=== PATIENT | female | born 1965 | race Caucasian/White ===

== ENCOUNTER 2016-06-28 15:49 | Emergency (ER) | payer SELFPAY ==
--- NOTE | 2016-06-28 16:15 | ER Document Report ---
ED Medical Screen (RME) - General Stated Complaint: BACK PAIN Time seen by provider: 16:12 Mode of Arrival: Wheelchair Information source: Patient Notes: 51-year-old female with history of degenerative arthritis, intermittent bouts of low back pain, moved furniture in her room on Thursday.She developed back pain on . It hurts to sit or walk. Symptoms similar was due to UTI several months ago. No fever. Today she started having some tingling and numbness below both of her knees down to her feet bilaterally. I have greeted and performed a rapid initial assessment of this patient. A comprehensive ED assessment, evaluation of the patient, analysis of test results , and completion of the medical decision making process will be contacted by additional ED providers. TRAVEL OUTSIDE OF THE [place] IN LAST 30 DAYS: No - Related Data Allergies/Adverse Reactions: codeine [Codeine] Allergy (Verified 06/28/16 16:14) Vomiting Past Medical History Past Surgical History: Reports: Hx Section - x2, Hx Cholecystectomy, Hx Hysterectomy, Hx Tonsillectomy - Immunizations Hx Diphtheria, Pertussis, Tetanus Vaccination: Yes - unknown Physical Exam - Vital signs Vitals: Temp Pulse Resp BP Pulse Ox 98.1 F 72 20 124/57 L 98 06/28/16 15:59 06/28/16 15:59 06/28/16 15:59 06/28/16 15:59 06/28/16 15:59 Course - Vital Signs Vital signs: Temp Pulse Resp BP Pulse Ox 98.1 F 72 20 124/57 L 98 06/28/16 15:59 06/28/16 15:59 06/28/16 15:59 06/28/16 15:59 06/28/16 15:59
[2016-06-28 16:51] LABS: APPEARANCE,URINE CLEAR; BILIRUBIN,URINE NEGATIVE (NEGATIVE); GLUCOSE, URINE NEGATIVE (NEGATIVE); KETONES,URINE NEGATIVE (NEGATIVE); LEUKOCYTE ESTERASE,URINE NEGATIVE (NEGATIVE); NITRITE,URINE NEGATIVE (NEGATIVE); PROTEIN,URINE NEGATIVE (NEGATIVE); URINE SPECIFIC GRAVITY 1.008; UROBILINOGEN,URINE NEGATIVE mg/dL (<2.0)
[2016-06-28] MEDS ORDERED: MELOXICAM 15 MG TABLET PO ONE (17:34)
--- NOTE | 2016-06-28 17:34 | ER Document Report ---
HPI - HPI Patient complains to provider of: back pain Pain Level: 5 Context: Patient is a 51-year-old female with past medical history significant for degenerative arthritis. Patient states that on Thursday she is moving some furniture around her home and had back pain ever since then. Patient states she is not able to take a lot of medications to a sensitive stomach she's been taking Aleve which is been helping. Otherwise she admits to intermittent sciatica bilaterally but able to bear weight and walk. Denies any urinary/ stool incontinence, saddle anesthesia. Has medical history significant for degenerative arthritis, COPD, depression Past surgical history significant for total hysterectomy, tonsils and adenoids, cholecystectomy Social history significant for [id number] and social marijuana use Allergies to codeine PCP is [facility] - REPRODUCTIVE Reproductive: DENIES: : - DERM Skin Color: Normal Past Medical History - General Information source: Patient - Social History Smoking Status: Current Every Day Smoker Chew tobacco use (# tins/day): No Frequency of alcohol use: None Drug Abuse: None Family History: Reviewed & Not Pertinent Patient has suicidal ideation: No Patient has homicidal ideation: No Renal/ Medical History: Denies: Hx Peritoneal Dialysis Past Surgical History: Reports: Hx Section - x2, Hx Cholecystectomy, Hx Hysterectomy, Hx Tonsillectomy - Immunizations Hx Diphtheria, Pertussis, Tetanus Vaccination: Yes - unknown Vertical Provider Document - CONSTITUTIONAL Exam Limitations: No Limitations General Appearance: WD/WN, No Apparent Distress - INFECTION CONTROL TRAVEL OUTSIDE OF THE [place] IN LAST 30 DAYS: No - HEENT HEENT: Atraumatic, Normocephalic - RESPIRATORY O2 Sat by Pulse Oximetry: 98 - CARDIOVASCULAR Pulses: Normal: Radial, Dorsalis pedis Notes: Capillary refill less than 2 seconds in bilateral upper and lower extremity digits. - BACK Back: Normal Inspection. negative: CVA Tenderness-Right, CVA Tenderness-Left Notes: Tenderness to palpation of the paraspinous lumbar muscles. - MUSCULOSKELETAL/EXTREMETIES Musculoskeletal/Extremeties: MAEW, FROM, Non-Tender, No Edema. negative: Eccymosis - NEURO Level of Consciousness: Awake, Alert, Appropriate Motor/Sensory: No Motor Deficit, No Sensory Deficit - DERM Integumentary: Warm, Dry, No Rash Course - Re-evaluation Re-evalutation: 06/28/16 17:31 Patient is a 51-year-old female with known history of degenerative arthritis which she states causes her back pain when she seems to overdo it in physical activity which she did this week. Discharge patient home with prescription for Mobic and [facility]. - Vital Signs Vital signs: Temp Pulse Resp BP Pulse Ox 98.1 F 72 20 124/57 L 98 06/28/16 15:59 06/28/16 15:59 06/28/16 15:59 06/28/16 15:59 06/28/16 15:59 - Laboratory Laboratory results interpreted by me: 06/28/16 16:20 Urine Blood SMALL H Discharge - Discharge Clinical Impression: Low back pain Qualifiers: Chronicity: acute Back pain laterality: bilateral Sciatica presence: with sciatica Sciatica laterality: bilateral sciatica Qualified Code(s): M54.42 - Lumbago with sciatica, left side; M54.41 - Lumbago with sciatica, right side Condition: Good Disposition: HOME, SELF-CARE Instructions: Ice Packs ([facility]), Low Back Pain ([facility]), Muscle Strain ([facility]), Warm Packs ([facility]), Stretching Exercises for the Back ([facility]) Prescriptions: Meloxicam [Mobic 15 mg Tablet] 15 mg PO DAILY #30 tablet Referrals: [facility] [Primary [facility] Provider] - Follow up as needed
[2016-06-28] MEDS ORDERED: MELOXICAM 15 MG TABLET ONE (18:16)
[2016-06-28 19:29] VITALS: BP 127/62
== END 2016-06-28 18:26 | disposition home or self-care (01) ==
LOC: ER 15:49
DX: M19.90 Unspecified osteoarthritis, unspecified site (principal); M54.41 Lumbago with sciatica, right side; M54.42 Lumbago with sciatica, left side; J44.9 Chronic obstructive pulmonary disease, unspecified; F17.200 Nicotine dependence, unspecified, uncomplicated; Z88.5 Allergy status to narcotic agent
CPT/HCPCS: 81001; 87086; 99283

== ENCOUNTER → 2016-09-23 | Outpatient (CLI) | payer MEDICAID | LOC: RAD 15:20 | PROVIDERS: ATTEND Physician Assistant | DX: R59.0 Localized enlarged lymph nodes (principal) | CPT/HCPCS: 76857 ==

== ENCOUNTER → 2016-09-26 | Outpatient (CLI) | payer OTHER ==
[2016-09-26 16:39] LABS: ALANINE AMINOTRANSFERASE 24 U/L (9-52); ALBUMIN 4.4 g/dL (3.5-5.0); ALKALINE PHOSPHATASE 50 U/L (38-126); ANION GAP 10 (5-19); ASPARTATE AMINO TRANSFERASE 16 U/L (14-36); BILIRUBIN,DIRECT 0.3 mg/dL (0.0-0.4); BILIRUBIN,TOTAL 0.7 mg/dL (0.2-1.3); BLOOD UREA NITROGEN 12 mg/dL (7-20); CALCIUM 9.5 mg/dL (8.4-10.2); CARBON DIOXIDE 30 mmol/L (22-30); CHLORIDE 100 mmol/L (98-107); GLUCOSE 89 mg/dL (75-110); POTASSIUM 4.3 mmol/L (3.6-5.0); TOTAL PROTEIN 6.9 g/dL (6.3-8.2)
== END ==
LOC: OD 15:12
DX: M25.50 Pain in unspecified joint (principal); M25.40 Effusion, unspecified joint; R22.1 Localized swelling, mass and lump, neck; R22.40 Localized swelling, mass and lump, unspecified lower limb
CPT/HCPCS: 36415; 80053; 86430

== ENCOUNTER → 2016-11-19 | Outpatient (CLI) | payer MEDICAID ==
--- NOTE | 2016-11-19 13:23 | RADIOLOGY REPORT (SQ) ---
EXAM DESCRIPTION: T SPINE AP/LAT COMPLETED DATE/TIME: 11/19/2016 1:15 pm REASON FOR STUDY: PAIN IN THORACIC SPINE R07.81 PLEURODYNIA M54.6 PAIN IN THORACIC SPINE COMPARISON: Two-view chest same date NUMBER OF VIEWS: Two views. TECHNIQUE: AP and lateral radiographic images acquired of the thoracic spine. LIMITATIONS: None. FINDINGS: MINERALIZATION: Osteopenic ALIGNMENT: Normal. No scoliosis. VERTEBRAE: No fracture or bone lesion. Maintained height, normal segmentation. DISCS: Mild diffuse disc space loss of height with mild anterior osteophyte formation from T2-3 throu gh T6-7. HARDWARE: None in the spine. MEDIASTINUM AND SOFT TISSUES: Normal heart size and aortic contour. No soft tissue abnormality. VISUALIZED LUNG RIVERA: Clear. OTHER: No other significant finding. IMPRESSION: No acute findings TECHNICAL DOCUMENTATION: JOB ID: [id number] [employer]- All Rights Reserved
--- NOTE | 2016-11-19 13:32 | RADIOLOGY REPORT (SQ) ---
EXAM DESCRIPTION: CHEST PA/LATERAL COMPLETED DATE/TIME: 11/19/2016 1:15 pm REASON FOR STUDY: PLEURODYNIA COMPARISON: 04/06/2016 TECHNIQUE: Frontal and lateral radiographic views of the chest acquired. NUMBER OF VIEWS: Two view. LIMITATIONS: None. FINDINGS: LUNGS AND PLEURA: Changes COPD. No developing infiltrates or pleural effusion or pneumoth orax. MEDIASTINUM AND HILAR STRUCTURES: No masses or contour abnormalities. HEART AND VASCULAR STRUCTURES: Heart normal size. No evidence for failure. BONES: No acute findings. HARDWARE: None in the chest. OTHER: No other significant finding. IMPRESSION: Changes COPD. Nothing acute. TECHNICAL DOCUMENTATION: JOB ID: [id number] [employer]- All Rights Reserved
== END ==
LOC: OD 12:50
PROVIDERS: ATTEND Physician Assistant
DX: R07.81 Pleurodynia (principal); M54.6 Pain in thoracic spine
CPT/HCPCS: 71020; 72070

== ENCOUNTER → 2017-06-26 | Outpatient (CLI) | payer MEDICAID ==
--- NOTE | 2017-06-26 17:18 | WOMENS IMAGING REPORT ---
EXAM DESCRIPTION: BILAT SCREENING MAMMO W/CAD COMPLETED DATE/TIME: 06/26/2017 2:31 pm REASON FOR STUDY: SCREENING MAMMO Z12.31 ENCNTR SCREEN MAMMOGRAM FOR MALIGNANT NEOPLASM OF [place] COMPARISON: 04/10/2016. TECHNIQUE: Standard craniocaudal and mediolateral oblique views of each breast recorded using digita l acquisition. LIMITATIONS: None. FINDINGS: No masses, calcifications or architectural distortion. No areas of suspicion. Read with the assistance of CAD. .[facility] - R2 Cenova Version 1.3 .[facility] - R2 Cenova Version 1.3 .[facility] - R2 Cenova Version 2.4 .[facility] Cenova Version 2.4 .[facility] - R2 Glass Engraver Version 9.2 IMPRESSION: NORMAL MAMMOGRAM. BIRADS 1. BREAST DENSITY: c. The breasts are heterogeneously dense, which may obscure small masses. BIRAD: 1 NEGATIVE RECOMMENDATION: ROUTINE SCREENING COMMENT: The patient has been notified of the results by letter per SA requirements. Additional no tification policies are in place for contacting patient with suspicious or incomplete findings. Quality ID #[id number]: The [employer] recommends an annual screening mammogram for women aged 40 years or over. This facility utilizes a reminder system to ensure that all patients receive reminder letters, and/or direct phone calls for appointments. This includes reminders for routine scr eening mammograms, diagnostic mammograms, or other Breast Imaging Interventions when appropriate. Th is patient will be placed in the appropriate reminder system. The [employer] (ACR) has developed recommendations for screening MRI of the breast s in certain patient populations, to be used in conjunction with mammography. Breast MRI surveillanc e may be appropriate for women with more than 20% lifetime risk of developing breast cancer as deter mined by genetic testing, significant family history of the disease, or history of mantle radiation f or Hodgkins Disease. ACR Practice Guidelines 2008. TECHNICAL DOCUMENTATION: FINDING NUMBER: (1) ASSESSMENT: (1) JOB ID: [id number] [employer]- All Rights Reserved
== END ==
LOC: WI 14:10
PROVIDERS: ATTEND Physician Assistant
DX: Z12.31 Encounter for screening mammogram for malignant neoplasm of breast (principal)
CPT/HCPCS: 77067

== ENCOUNTER → 2017-08-26 | Outpatient (CLI) | payer MEDICAID ==
--- NOTE | 2017-08-26 15:06 | RADIOLOGY REPORT (SQ) ---
EXAM DESCRIPTION: MANDIBLE 4 VIEWS OR MORE COMPLETED DATE/TIME: 08/26/2017 2:28 pm REASON FOR STUDY: JAW PAIN R68.84 JAW PAIN COMPARISON: None. NUMBER OF VIEWS: Four view. TECHNIQUE: Images of the mandible acquired. AP, Isabella's, angled right, angled left mandible images. LIMITATIONS: None. FINDINGS: MANDIBLE: No acute fracture. No disruption of the right or left temporomandibular joints. ORBITS: No fracture. No foreign body. SINUSES: Left maxillary sinus mucosal thickening. No air fluid levels. FACIAL BONES: No fracture. OTHER: No other significant finding. IMPRESSION: NO ACUTE FRACTURE OR MALALIGNMENT. TECHNICAL DOCUMENTATION: JOB ID: [id number] [employer]- All Rights Reserved Reading location - IP/workstation name: [email or web address]
--- NOTE | 2017-08-26 15:12 | RADIOLOGY REPORT (SQ) ---
EXAM DESCRIPTION: TMJ COMPLETED DATE/TIME: 08/26/2017 2:27 pm REASON FOR STUDY: JAW PAIN COMPARISON: None. TECHNIQUE: Four views of the TMJs. LIMITATIONS: None. FINDINGS: Joint spaces are normal. Articular surfaces are smooth. IMPRESSION: Normal TMJs. TECHNICAL DOCUMENTATION: JOB ID: [id number] [employer]- All Rights Reserved Reading location - IP/workstation name: [email or web address]
== END ==
LOC: OD 13:46
PROVIDERS: ATTEND Physician Assistant
DX: R68.84 Jaw pain (principal)
CPT/HCPCS: 70110; 70330

== ENCOUNTER → 2018-07-16 | Outpatient (CLI) | payer MEDICAID ==
--- NOTE | 2018-07-16 15:55 | WOMENS IMAGING REPORT ---
EXAM DESCRIPTION: BILAT SCREENING MAMMO W/CAD COMPLETED DATE/TIME: 07/16/2018 3:24 pm REASON FOR STUDY: ROUTINE BILATERAL MAMMO Z12.31 Z12.31 ENCNTR SCREEN MAMMOGRAM FOR MALIGNANT NEOPL ASM OF [place] COMPARISON: 2015, 2017 TECHNIQUE: Standard craniocaudal and mediolateral oblique views of each breast recorded using Topica l acquisition. LIMITATIONS: None. FINDINGS: No masses, calcifications or architectural distortion. No areas of suspicion. Read with the assistance of CAD. .[facility] - R2 Cenova Version 1.3 .[facility] - R2 Cenova Version 2.1 .[facility] - R2 Cenova Version 2.4 .[facility] [place] Cenova Version 2.4 .[facility] - R2 Delivery Manager Version 9.2 IMPRESSION: NORMAL MAMMOGRAM. BIRADS 1. BREAST DENSITY: b. There are scattered areas of fibroglandular density. BIRAD: 1 NEGATIVE RECOMMENDATION: ROUTINE SCREENING COMMENT: The patient has been notified of the results by letter per SA requirements. Additional no tification policies are in place for contacting patient with suspicious or incomplete findings. Quality ID #[id number]: The [employer] recommends an annual screening mammogram for women aged 40 years or over. This facility utilizes a reminder system to ensure that all patients receive reminder letters, and/or direct phone calls for appointments. This includes reminders for routine scr eening mammograms, diagnostic mammograms, or other Breast Imaging Interventions when appropriate. Th is patient will be placed in the appropriate reminder system. The [employer] (ACR) has developed recommendations for screening MRI of the breast s in certain patient populations, to be used in conjunction with mammography. Breast MRI surveillanc e may be appropriate for women with more than 20% lifetime risk of developing breast cancer as deter mined by genetic testing, significant family history of the disease, or history of mantle radiation f or Hodgkins Disease. ACR Practice Guidelines 2008. TECHNICAL DOCUMENTATION: FINDING NUMBER: (1) ASSESSMENT: (1) JOB ID: [id number] [employer]- All Rights Reserved Reading location - IP/workstation name: [email or web address]
== END ==
LOC: WI 14:45
PROVIDERS: ATTEND Nurse Practitioner Family
DX: Z12.31 Encounter for screening mammogram for malignant neoplasm of breast (principal)
CPT/HCPCS: 77067